=== PATIENT | male | born 1955 | race Caucasian/White ===

== ENCOUNTER → 2018-12-10 | Outpatient (CLI) | payer OTHER, SELFPAY ==
[2018-12-10 14:59] LABS: Vitamin D,25 Hydroxy 13.7 ng/mL (29.95-100.01)
[2018-12-10 15:02] LABS: Anion Gap 6 (5-15); BUN 24 mg/dL (7-18); BUN/Creat Ratio 23.8 RATIO (10-20); Calcium,Total 9.3 mg/dL (8.5-10.1); Chloride 105 mmol/L (98-107); Cholesterol 228 mg/dL (200); Creatinine, Serum 1.01 mg/dL (0.70-1.30); EST Glomerular Filtration Rate 80 mL/min (>60); Est Glom Filt Rate - Afr Amer 97 mL/min (>60); Glucose 92 mg/dL (74-106); High Density Lipoprotein 55 mg/dL; PSA,Total - Annual Screen 2.15 ng/mL (0.00-4.00); Potassium 4.1 mmol/L (3.5-5.1); Sodium Level 138 mmol/L (136-145); Triglycerides 72 mg/dL; Very Low Density Lipoprotein 14 mg/dL (5-40)
== END | disposition home or self-care (01) ==
LOC: MFPLAB 11:40
PROVIDERS: Family Provider Family Medicine; PCP Family Medicine; Referring Provider Family Medicine; Visit Provider Family Medicine
DX: R20.9 Unspecified disturbances of skin sensation (principal); D68.51 Activated protein C resistance; E78.00 Pure hypercholesterolemia, unspecified; Z12.5 Encounter for screening for malignant neoplasm of prostate
CPT/HCPCS: 36415; 80048; 80061; 81241; 82306; 84153; G0103

== ENCOUNTER → 2020-01-17 09:26 | Outpatient (CLI) | payer OTHER, MEDICAID, SELFPAY ==
[2020-01-17 12:44] LABS: ALB/GLOB Ratio 1.2 RATIO (0.9-2.4); AST(SGOT) 22 U/L (15-37); Alanine Aminotransfer ALT/SGPT 26 U/L (16-61); Albumin, Serum 3.8 g/dL (3.2-5.0); Alkaline Phosphatase 73 U/L (45-117); Anion Gap 5 (5-15); BUN 15 mg/dL (7-18); BUN/Creat Ratio 14.3 RATIO (10-20); Calcium,Total 9.2 mg/dL (8.5-10.1); Chloride 105 mmol/L (98-107); Cholesterol 234 mg/dL (200); Creatinine, Serum 1.05 mg/dL (0.70-1.30); EST Glomerular Filtration Rate 76 mL/min (>60); Est Glom Filt Rate - Afr Amer 92 mL/min (>60); Globulin 3.1 g/dL (2.2-4.2); Glucose 101 mg/dL (74-106); High Density Lipoprotein 46 mg/dL; Potassium 4.5 mmol/L (3.5-5.1); Protein, Total 6.9 g/dL (6.4-8.2); Sodium Level 139 mmol/L (136-145); Triglycerides 125 mg/dL; Very Low Density Lipoprotein 25 mg/dL (5-40)
== END ==
PROVIDERS: PCP Family Medicine; Visit Provider Family Medicine
DX: E11.9 Type 2 diabetes mellitus without complications (principal); Z13.220 Encounter for screening for lipoid disorders
CPT/HCPCS: 36415; 80053; 80061

== ENCOUNTER 2020-12-15 05:25 | Day surgery (SDC) | payer OTHER, SELFPAY ==
[2020-12-04 14:35] VITALS: BMI 20.3
[2020-12-11 09:11] VITALS: BMI 20.3
[2020-12-15] VITALS (9 sets, daily range): BP systolic 111–151; BP diastolic 72–81; PULSE 49–58; RESP 14–16; TEMP 36.2–36.6; O2SAT 97–100; BMI 21.0
--- NOTE | 2020-12-15 | COLBX_PTH ---
PATIENT: JAMSHID STEVENS LOC: EN U#:[id number] AGE/SX: 65/M ROOM: RE12/15/[address]: Dr. Luis Miguel Artis MD : 1955 BED: DIS: 12/15/2020 SPEC #: [id number] RECD: 12/15/20 11:50 STATUS: MNAN REHong #: [id number] JOANNA: 12/15/20 00:[address]: Luis Miguel Artis DEPT: SURGICAL PATHOLOGY RECD BY: Ned Villarreal ENTERED: 12/15/20 11:50 SP TYPE: COLON BX OTHR DR: Dr. Alex Joyner MD Tissues: Ascending colon Procedures: Surgery Specimen Level IV HEADER OPERATION: Colonoscopy (MAC) PRE-OP DIAGNOSIS: Screening for malignant neoplasm of intestine; factor 5 Leiden mutation, heterozygous, weight loss TISSUE SUBMITTED: Ascending colon polyp biopsy MICROSCOPIC DIAGNOSIS Ascending colon polyp, biopsy: Tubular adenoma. SJ:hazel 12/18/2020 MICROSCOPIC DESCRIPTION Slides are reviewed. GROSS DESCRIPTION Received in fixative is one container labeled with the patient's name and designated ascending colon polyp biopsy. The specimen consists of two irregular fragments of light fan soft tissue that in aggregate measure 0.4 x 0.3 x 0.1 cm. The specimen is totally submitted in one cassette. / MILAGROS:hazel 12/15/20 TC:1 CPT: 07762
--- NOTE | 2020-12-15 05:47 | PCM.HP.BLA ---
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 cap 02/28/20 [History Confirmed 12/04/20] PFSH Medical History? Hemorrhoids (Acute) Numbness and tingling (Acute) Heart murmur (Acute) Factor 5 Leiden mutation, heterozygous (Acute) Facial paresthesia (Acute) Diabetes (Acute) Surgical History? Hx of tonsillectomy (Acute) H/O hand surgery (Acute) H/O shoulder surgery (Acute) Family History? Mother?? ,? 86 Breast cancerSon Factor 5 Leiden mutation, heterozygousSon Factor 5 Leiden mutation, heterozygous Social History? (Updated 12/04/20 @ 15:[address] Luis Miguel Artis MD) Smoking Status:? Never smoker? second hand exposure:? No? alcohol intake:? never? substance use type:? does not use? caffeine:? Yes? what type of physical activity do you participate in:? 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 HPI HPI HPI: JAMSHID STEVENS, is a 65 M who presents to the office today for surgical consultation regarding a right inguinal hernia.? The patient is being referred by Dr. Alex Joyner and a written copy of my surgical consult and recommendations will return to him.? It is of an additional note that the patient has factor V Leiden mutation.? He has never had a deep venous thrombosis.? He has had previous shoulder and hand surgery before without complication.? He is leaving tomorrow on a flight to [place] to watch a tennis match.? He will also in a week's time be attending a graduation ceremony..? 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 He just lost his fwjcvt-la-iyj.? She had been living with him for several months.? He felt that he encouraged a right groin injury while lifting her.? He has never had any previous hernia surgery. He has never had a colonoscopy.? He denies any bright red blood per rectum or melena. He has had a 15 to 20 pound weight loss over the past year.? He states that rather than going to the office and eating junk food he has been on the [employer] home limitations.? There is been extra stressors.? He has been more physically active at home than when he was going to the office.? He suggest that his weight loss is secondary to that plus eating more of a vegan-like diet. HPI HPI HPI: JAMSHID STEVENS, is a 65 M who presents to the office today for? ROS General General: No weight change, appetite, fatigue, colon cancer, breast cancer or weakness HEENT HEENT: No difficulty swallowing, eye injury, eye surgery, swollen glands or hoarseness Endo Endocrine: No thyroid disease, diabetes mellitus, thyroid cancer, Hair loss, heat intolerance or cold intolerance Skin Skin: No rash or changing moles Breast Breast: No left breast lump, right breast lump, nipple discharge, breast pain, abnormal mammogram, abnormal US or breast enlargement Musc Musculoskeletal: No back problems, arthritis, rheumatoid arthritis, gout or joint pain Cardio Cardiovascular: Yes murmur; no pacemaker, heart disease, atrial fibrillation, high blood pressure, heart attack, heart stent, palpitations, shortness of breat with exertion or chest pain Psych Psychiatric: No depression, anxiety or hearing voices Resp Respiratory: No shortness of breath, No sleep apnea, No cough, No COPD, No asthma, No emphysema, No wheezing Gastro Gastrointestinal: No abdominal pain, No nausea or vomiting, No diarrhea, No constipation, No blood in stool, No acid reflux, Yes hemorrhoids, No ulcers, No gallbladder problem, No black,tarry stools Aris Hematologic: No blood thinners, Yes blood disorders (Factor V), No bleeding, No anemia, No blood clots Neuro Neurologic: Yes numbness, Yes tingling, No weakness Exam Const General: cooperative, healthy appearing, comfortable Nutritional Appearance: underweight Orientation: alert, awake HENHI Head: normal to inspection Chest Breast Palpation: No nipple discharge Resp Effort & Inspection: normal respiratory effort Auscultation: clear to auscultation bilaterally Cardio Rate: regular rate Rhythm: regular rhythm Heart Sounds: murmur GI Palpation: soft, no hepatosplenomegaly Other: Testicles are descended bilaterally.? No testicular mass.? Left groin solid and intact. Skin General: no rashes or lesions noted Neuro Cognition: normal cognition Extrem General: no calf tenderness Psych Affect: normal affect Assessment & Plan Problems 1. Weight loss? R63.4 2. Screening for malignant neoplasm of intestine? Z12.10 3. Factor 5 Leiden mutation, heterozygous? D68.51 4. Reducible right inguinal hernia? K4. Plan Very pleasant 65-year-old gentleman.? He has had a 15 to 20 pound weight loss.? Although there seems to be some discussion that would correlate he is never had a colonoscopy.? There has been recently some extra stress in his family with the loss of his ntcqte-bi-gho.? He is increased his physical activity.? I propose for him a colonoscopy with possible biopsy or polypectomy as indicated.? He has never previously had a screening event.? He has had an opportunity to ask and have questions answered. I then propose for him a laparoscopic right inguinal herniorrhaphy with mesh.? In great detail I have discussed technique benefit risk complications alternatives.? We have compared and contrasted that to other repairs.? 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 He is aware of the risk of recurrence.? He has had an opportunity to ask and have questions answered.? We will try to schedule around his other commitments. I appreciate the opportunity of assisting with his surgical care Copy: Dr. Alex Artis M.D., F.A.C.S. Coding Level of Care Code Off vis,new,level 3 Diagnoses Weight loss? R63.4 Screening for malignant neoplasm of intestine? Z12.10 Factor 5 Leiden mutation, heterozygous? D68.51 Reducible right inguinal hernia? K4 I have re-examined the patient. There are no clinical changes since date of exam.
[2020-12-15] MEDS: Lactated Ringers 1,000 ML 100 ML IV (06:04)
--- NOTE | 2020-12-15 06:49 | OP.COLON_ITS ---
Patient Name: lEiezer Zambrano Procedure Date: 12/15/2020 6:16 AM Date of : 1955 Age: 65 Procedure: Colonoscopy Indications: Screening for colorectal malignant neoplasm Providers: Luis Miguel Artis MD Referring MD: Alex Joyner Md Medicines: See the Anesthesia note for documentation of the administered medications Patient Profile: Last Colonoscopy: none. The patient's first colonoscopy is today. Complications: No immediate complications. Procedure: Pre-Anesthesia Assessment: - Prior to the procedure, a History and Physical was performed, and patient medications and allergies were reviewed. The patient's tolerance of previous anesthesia was also reviewed. The risks and benefits of the procedure and the sedation options and risks were discussed with the patient. All questions were answered, and informed consent was obtained. Prior Anticoagulants: The patient has taken no previous anticoagulant or antiplatelet agents. ASA Grade Assessment: I - A normal, healthy patient. After reviewing the risks and benefits, the patient was deemed in satisfactory condition to undergo the procedure. After I obtained informed consent, the scope was passed under direct vision. Throughout the procedure, the patient's blood pressure, pulse, and oxygen saturations were monitored continuously. The Colonoscope was introduced through the anus and advanced to the cecum, identified by appendiceal orifice and ileocecal valve. The colonoscopy was performed without difficulty. The patient tolerated the procedure well. The quality of the bowel preparation was good. The ileocecal valve and the appendiceal orifice were photographed. Scope In: 6:31:33 AM Scope Withdrawal Time 0 hours 9 minutes 37 seconds Scope Out: 6:43:47 AM Total Procedure Duration Time 0 hours 12 minutes 14 seconds Findings: The digital rectal exam findings include non-thrombosed external hemorrhoids, non-thrombosed internal hemorrhoids and internal hemorrhoids that prolapse with straining, but spontaneously regress to the resting position (Grade II). Pertinent negatives include normal prostate (size, shape, and consistency). A 4 mm polyp was found in the mid ascending colon. The polyp was sessile. The polyp was removed with a cold biopsy forceps. Resection and retrieval were complete. The exam was otherwise without abnormality. Impression: - Non-thrombosed external hemorrhoids, non-thrombosed internal hemorrhoids and internal hemorrhoids that prolapse with straining, but spontaneously regress to the resting position (Grade II) found on digital rectal exam. - One 4 mm polyp in the mid ascending colon, removed with a cold biopsy forceps. Resected and retrieved. - The examination was otherwise normal. Recommendation: - Discharge patient to home. - Resume previous diet. - Continue present medications. - Repeat colonoscopy in 5 years for surveillance based on pathology results. - Telephone my office for pathology results in 1 week. Procedure Code(s): --- Professional --- 16982, Colonoscopy, flexible; with biopsy, single or multiple Diagnosis Code(s): --- Professional --- Z12.11, Encounter for screening for malignant neoplasm of colon K64.1, Second degree hemorrhoids K64.4, Residual hemorrhoidal skin tags D12.2, Benign neoplasm of ascending colon CPT copyright 2017 [employer]. All rights reserved. The codes documented in this report are preliminary and upon health information coder review may be revised to meet current compliance requirements. Luis Miguel Artis MD 12/15/2020 6:48:49 AM This report has been signed electronically. Number of Addenda: 0 Note Initiated On: 12/15/2020 6:16 AM
--- NOTE | 2020-12-15 06:49 | OP.CCLET_ITS ---
12/15/2020 Alex Joyner Md Re : Colonoscopy procedure for Eliezer Zambrano Dear Ar This procedure was performed on Tuesday, December 15, 2020. My impressions and recommendations are as follows: Impressions : - Non-thrombosed external hemorrhoids, non-thrombosed internal hemorrhoids and internal hemorrhoids that prolapse with straining, but spontaneously regress to the resting position (Grade II) found on digital rectal exam. - One 4 mm polyp in the mid ascending colon, removed with a cold biopsy forceps. Resected and retrieved. - The examination was otherwise normal. Recommendations : - Discharge patient to home. - Resume previous diet. - Continue present medications. - Repeat colonoscopy in 5 years for surveillance based on pathology results. - Telephone my office for pathology results in 1 week. My findings are described in the full procedure note, which is enclosed. If I can be of further assistance, please feel free to contact me at Doctor phone number(s): Work: . Sincerely, Luis Miguel Artis MD 12/15/2020 6:48:49 AM This report has been signed electronically.
== END 2020-12-15 08:03 | disposition home or self-care (01) ==
LOC: EN 05:25 → AC 05:28
PROVIDERS: PCP Family Medicine; Referring Provider Family Medicine; Visit Provider Surgery
PROC: 0DJD8ZZ Inspection of Lower Intestinal Tract, Via Natural or Artificial Opening Endoscopic (ICD-10-PCS; CPT 45378; principal; 2020-12-15 06:25)
DX: Z12.11 Encounter for screening for malignant neoplasm of colon (principal); D12.2 Benign neoplasm of ascending colon; K64.1 Second degree hemorrhoids; K40.90 Unilateral inguinal hernia, without obstruction or gangrene, not specified as recurrent; E11.9 Type 2 diabetes mellitus without complications
CPT/HCPCS: 45380; 88305; J7120; J2405

== ENCOUNTER 2020-12-20 09:26 | Day surgery (SDC) | payer OTHER, SELFPAY ==
[2020-12-04 14:35] VITALS: BMI 20.3
--- NOTE | 2020-12-15 05:35 | EKG12_ITS ---
Test Reason : PREOP Blood Pressure : / mmHG Vent. Rate : 047 BPM Atrial Rate : 047 BPM P-R Int : 140 ms QRS Dur : 086 ms QT Int : 448 ms P-R-T Axes : 076 037 044 degrees QTc Int : 396 ms Sinus bradycardia Confirmed by MOISES FOWLER, NATE ([id number]), tape editor EMIL MARINELLI ([id number]) on 12/20/2020 9:17:45 AM Referred By: Alex Joyner Confirmed By:NATE DE LEON MD
[2020-12-15 05:49] VITALS: BMI 21.0
[2020-12-15 07:15] LABS: Hematocrit 40.4 % (40-54); Hemoglobin 13.7 g/dL (13.0-16.5); Mean Corp Hgb Conc 33.9 g/dL (32-36); Mean Corpuscular Hgb 30.6 pg (27.0-32.0); Mean Corpuscular Volume 90.4 fL (80-94); Mean Platelet Vol. 9.7 fl (6.2-12.0); Platelet Count 165 K/mm3 (150-450); RBC Distribution Width CV 11.7 % (11.6-14.6); RBC Distribution Width SD 38.8 fl (35.1-43.9); Red Blood Count 4.47 M/mm3 (4.6-6.2); White Blood Count 3.4 K/mm3 (4.4-11.0)
[2020-12-15 07:27] LABS: Anion Gap 2 (5-15); BUN 14 mg/dL (7-18); BUN/Creat Ratio 14.2 RATIO (10-20); Calcium,Total 8.8 mg/dL (8.5-10.1); Chloride 107 mmol/L (98-107); Creatinine, Serum 0.99 mg/dL (0.70-1.30); EST Glomerular Filtration Rate 81 mL/min (>60); Est Glom Filt Rate - Afr Amer 98 mL/min (>60); Glucose 101 mg/dL (74-106); Sodium Level 141 mmol/L (136-145)
[2020-12-20] VITALS (8 sets, daily range): BP systolic 123–144; BP diastolic 60–86; PULSE 51–67; RESP 16–18; TEMP 35.7–36.8; O2SAT 96–100; BMI 20.7
[2020-12-20] MEDS: Lactated Ringers 1,000 ML 100 ML IV (10:14)
--- NOTE | 2020-12-20 11:04 | PCM.HP.BLA ---
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 Is patient in pain?: Yes (Right groin tenderness) Allergies Corticosteroids (Glucocorticoids) Adverse Reaction (Intermediate, Verified 12/04/20 14:36) Swelling Medications cholecalciferol (vitamin D3) 50 mcg (2,000 unit) capsule 100 mcg PO DAILY cap 02/28/20 [History Confirmed 12/04/20] [facility] Medical History Hemorrhoids (Acute) Numbness and tingling (Acute) Heart murmur (Acute) Factor 5 Leiden mutation, heterozygous (Acute) Facial paresthesia (Acute) Diabetes (Acute) Surgical History Hx of tonsillectomy (Acute) H/O hand surgery (Acute) H/O shoulder surgery (Acute) Family History Mother , 86 Breast cancerSon Factor 5 Leiden mutation, heterozygousSon Factor 5 Leiden mutation, heterozygous Social History (Updated 12/04/20 @ 15:[address] 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 The patient is being referred by Dr. Alex Joyner and a written copy of my surgical consult and recommendations will return to him. It is of an additional note that the patient has factor V Leiden mutation. He has never had a deep venous thrombosis. He has had previous shoulder and hand surgery before without complication. He is leaving tomorrow on a flight to [place] to watch a tennis match. He will also in a week's time be attending a graduation ceremony.. 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 He just lost his ivcvnh-au-dng. She had been living with him for several months. He felt that he encouraged a right groin injury while lifting her. He has never had any previous hernia surgery. He has never had a colonoscopy. He denies any bright red blood per rectum or melena. He has had a 15 to 20 pound weight loss over the past year. He states that rather than going to the office and eating junk food he has been on the [employer] virtual home limitations. There is been extra stressors. He has been more physically active at home than when he was going to the office. He suggest that his weight loss is secondary to that plus eating more of a vegan-like diet. HPI HPI HPI: JAMSHID STEVENS, is a 65 M who presents to the office today for ROS General General: No weight change, appetite, fatigue, colon cancer, breast cancer or weakness HEENT HEENT: No difficulty swallowing, eye injury, eye surgery, swollen glands or hoarseness Endo Endocrine: No thyroid disease, diabetes mellitus, thyroid cancer, Hair loss, heat intolerance or cold intolerance Skin Skin: No rash or changing moles Breast Breast: No left breast lump, right breast lump, nipple discharge, breast pain, abnormal mammogram, abnormal US or breast enlargement Musc Musculoskeletal: No back problems, arthritis, rheumatoid arthritis, gout or joint pain Cardio Cardiovascular: Yes murmur; no pacemaker, heart disease, atrial fibrillation, high blood pressure, heart attack, heart stent, palpitations, shortness of breat with exertion or chest pain Psych Psychiatric: No depression, anxiety or hearing voices Resp Respiratory: No shortness of breath, No sleep apnea, No cough, No COPD, No asthma, No emphysema, No wheezing Gastro Gastrointestinal: No abdominal pain, No nausea or vomiting, No diarrhea, No constipation, No blood in stool, No acid reflux, Yes hemorrhoids, No ulcers, No gallbladder problem, No black,tarry stools Aris Hematologic: No blood thinners, Yes blood disorders (Factor V), No bleeding, No anemia, No blood clots Neuro Neurologic: Yes numbness, Yes tingling, No weakness Exam Const General: cooperative, healthy appearing, comfortable Nutritional Appearance: underweight Orientation: alert, awake [facility] Head: normal to inspection Chest Breast Palpation: No nipple discharge Resp Effort & Inspection: normal respiratory effort Auscultation: clear to auscultation bilaterally Cardio Rate: regular rate Rhythm: regular rhythm Heart Sounds: murmur GI Palpation: soft, no hepatosplenomegaly Other: Testicles are descended bilaterally. No testicular mass. Left groin solid and intact. Skin General: no rashes or lesions noted Neuro Cognition: normal cognition Extrem General: no calf tenderness Psych Affect: normal affect Assessment & Plan Problems 1. Weight loss R63.4 2. Screening for malignant neoplasm of intestine Z12.10 3. Factor 5 Leiden mutation, heterozygous D68.51 4. Reducible right inguinal hernia K40.90 Plan Very pleasant 65-year-old gentleman. He has had a 15 to 20 pound weight loss. Although there seems to be some discussion that would correlate he is never had a colonoscopy. There has been recently some extra stress in his family with the loss of his gbakke-ya-oit. He is increased his physical activity. I propose for him a colonoscopy with possible biopsy or polypectomy as indicated. He has never previously had a screening event. He has had an opportunity to ask and have questions answered. I then propose for him a laparoscopic right inguinal herniorrhaphy with mesh. In great detail I have discussed technique benefit risk complications alternatives. We have compared and contrasted that to other repairs. 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 He is aware of the risk of recurrence. He has had an opportunity to ask and have questions answered. We will try to schedule around his other commitments. I appreciate the opportunity of assisting with his surgical care Copy: Dr. Alex Artis M.D., F.A.C.S. Coding Level of Care Code Off [facility],level 3 Diagnoses Weight loss R63.4 Screening for malignant neoplasm of intestine Z12.10 Factor 5 Leiden mutation, heterozygous D68.51 Reducible right inguinal hernia K40.90 On December 15, 2020 the patient had a colonoscopy done per myself. A single tubular adenoma was removed from the colon. The remainder of the exam was unremarkable. Follow-up colonoscopy in 5 years is planned. The patient now presents for planned laparoscopic right inguinal hernia repair with mesh. He is aware of technique, benefit, risk, alternatives. We will proceed as noted. Luis Miguel Artis M.D., F.A.C.S.
--- NOTE | 2020-12-20 11:06 | EX.PCM.DISCH ---
Discharge Instructions Procedure General Surgery Diet Discharge Diet: Light diet - advance as tolerated (if you have questions about your diet instructions, please talk to you doctor.) Activity Discharge Activity: May Not Drive (for 3-5 days or while taking narcotic pain medicine.) May shower in (days): 1 Lifting Restrictions: 10 pounds Dressing / Incision Call your doctor if your incision/area has: Continuous Slow Oozing, Sudden Increased Bleeding, Increased Pain/ Swelling, Increased Redness and Foul Smelling Discharge Call your doctor if you observe: Fever of 101 or Higher Suture Line Care: Avoid Pulling/Pushing and Avoid Pinching/Bending Additional Dressing/Incision Instructions:: Change or remove dressing in 4 days. Leave steri-strips in place for 1 week. Follow Up Care Please Follow Up With: Luis Miguel Artis MD When: Call [phone] to make an appointment to be seen in about 10 days. Test Results: Test results from this visit will be discussed in further detail at your follow-up appointment, if applicable. Discharge Plan Admission Attending Provider: Luis Miguel Artis Primary Care Provider: Alex Joyner Discharge Orders/Prescriptions Prescriptions: No Action cholecalciferol (vitamin D3) 50 mcg (2,000 unit) capsule 100 mcg PO DAILY RF: 0 Other Ambulatory Orders: Basic Metabolic Profile (BMP) (Routine) Timeframe: 20201215 Facility: [facility] - Location: Laboratory Ordered By: Dr. Luis Miguel Artis CBC-Complete Blood Cnt No Diff (Routine) Timeframe: 20201215 Facility: [facility] - Location: Laboratory Ordered By: Dr. Luis Miguel Artis
[2020-12-20] MEDS: Cefazolin 2 GM in 0.9% Normal Saline 100 ML IV (11:50)
[2020-12-20] MEDS: Bupivacaine Mpf 0.5% 30 ML VIAL (12:56)
--- NOTE | 2020-12-20 12:57 | PCM.OPRPT ---
Problems Associated Problem List Diagnoses (1) Reducible right inguinal hernia: Report of Operation Date of Procedure: 12/20/20 Pre-Operative Diagnosis: Right inguinal hernia Post-Operative Diagnosis: Indirect right inguinal hernia with cord lipoma Surgery/Procedure Performed:: Laparoscopic right inguinal herniorrhaphy with Bard 3D max extra-large right mesh, lot number [id number], reference #[id number], expiry date 06/07/2025 Secure strap lot number [id number], expiry date April 2022 Description of Surgical Findings:: Timeout and informed consent was obtained. 65-year-old gentleman was taken to the operating placed upon the table underwent general endotracheal intubation anesthesia. Ancef 2 g were given intravenously preoperatively. The abdomen was sterilely prepped and draped. 0.5% Marcaine was used as local anesthetic. A total of 30 cc was used. Local was instilled a vertical infraumbilical incision was created holding sutures of 0 Vicryl placed varies needle inserted saline drop test performed the abdomen was insufflated with CO2 to a pressure of 10 mmHg pressure. 10 mm trocar inserted. 10 mm laparoscope inserted. Under direct visualization there was no trocar injuries 5 mm ports were placed in the right left lower quadrant. There was a very minimal defect of the left internal ring. There was an obvious indirect right inguinal hernia. A ileal inguinal nerve block was performed on the right under laparoscopic visualization. Then the peritoneum superior and lateral to the internal ring was incised and carried medially. The peritoneum was completely dissected free. The rather sizable hernia sac was dissected free and completely inverted. And so doing a cord lipoma was identified and this was dissected free and reduced as well. The peritoneum was generously dissected free. Having now the direct indirect femoral areas identified I selected the use a extra-large right 3D Bard max mesh. It was placed in and actually for the very nicely so as to cover the direct space indirect and femoral area. Very nice coverage was achieved. Lateral superiorly and medially I secured that with secure strap. Excellent positioning was achieved. The peritoneum was then approximated to itself using a combination of secure strap and hemolock clips. Complete obliteration to the mesh was achieved. Trochars were removed after the gas was allowed to escape via an antiviral valve. The fascia at the umbilicus was approximated with an interrupted 0 Vicryl qrjrrk-sv-voyaz suture. Skin edges approximated 4-0 Monocryl subdermal stitches. Peyton-Strips Telfa OpSite dressings applied. Specimens none. Drains none. Blood loss minimal. The patient was taken to the recovery room in satisfactory condition without apparent complication Luis Miguel Artis M.D., F.A.C.S. Type of Anesthesia: General and Local Anesthesiologist: Davian Lopez
[2020-12-20] MEDS: Ketorolac 30 MG/ML Syringe IV (14:35)
== END 2020-12-20 16:25 | disposition home or self-care (01) ==
LOC: SDC 09:27 → AC 09:28
PROVIDERS: PCP Family Medicine; Referring Provider Family Medicine; Visit Provider Surgery
PROC: (CPT 49650; principal; 2020-12-20 11:15)
DX: K40.90 Unilateral inguinal hernia, without obstruction or gangrene, not specified as recurrent (principal); D17.6 Benign lipomatous neoplasm of spermatic cord; D68.51 Activated protein C resistance; R63.6 Underweight
CPT/HCPCS: 00840; 49650; 55559; 80048; 85027; 93005; J7120; C1781; J2405

== ENCOUNTER → 2021-01-03 07:22 | Outpatient (CLI) | payer OTHER, SELFPAY ==
[2020-12-11 09:11] VITALS: BMI 20.3
[2020-12-20 10:07] VITALS: BMI 20.7
--- NOTE | 2021-01-03 07:22 | MRI_ITS ---
STUDY: MRI BRAIN WITH AND WITHOUT CONTRAST REASON FOR EXAM: Male, 65 years old. Trigeminal Neuropathy TECHNIQUE: Standardized multiplanar fat and water weighted pulse sequences were obtained. IV 12ml Dotarem was administered for the contrast portion of the examination. COMPARISON: None. FINDINGS: Normal size of the ventricles and extra-axial spaces for the patient''s age. Normal white matter tracts of the supratentorial brain. There is no evidence for recent intracranial ischemia or other cause of cytotoxic edema on diffusion weighted imaging (DWI). Normal T2* images of the brain without demonstrated susceptibility artifact. There is no demonstrated hemosiderin stain. Normal bilateral basal ganglia. Normal thalami. There is no extra-axial fluid accumulation. Normal flow voids within the major intracranial circulation suggesting patency by spin echo criteria. Normal venous enhancement. There is no enhancing intra-axial or extra-axial abnormality. Normal sella turcica, pituitary gland, infundibular stalk, optic chiasm and hypothalamus. Normal tectal plate and pineal gland. Normal midbrain, vinnie and medulla. Normal cerebellum. Normal basal cisterns. Normal bilateral temporal bones. Normal bilateral internal auditory canals. No demonstrated orbital abnormality, within the constraints of a routine brain study. Normal visualized paranasal sinuses. Normal calvarium and skull base. Normal visualized soft tissue structures. Normal visualized upper cervical spine. MRI/Brain W/WO Contrast IMPRESSION: Normal unenhanced and enhanced MRI of the brain. Electronically Signed: Fitz Khan MD at 9:39 EDT Tel , Service support ,
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
== END ==
PROVIDERS: PCP Family Medicine; Referring Provider Psychiatry & Neurology Neurology; Visit Provider Psychiatry & Neurology Neurology
DX: G50.9 Disorder of trigeminal nerve, unspecified (principal); G62.9 Polyneuropathy, unspecified; M54.12 Radiculopathy, cervical region; M54.2 Cervicalgia; G89.29 Other chronic pain
CPT/HCPCS: 70553; 72156; A9575

== ENCOUNTER → 2021-01-18 09:13 | Outpatient (CLI) | payer OTHER, SELFPAY ==
[2020-12-20 10:07] VITALS: BMI 20.7
[2021-01-18 10:29] LABS: Cholesterol 202 mg/dL (200); High Density Lipoprotein 50 mg/dL; PSA,Total- Diagnostic 1.89 ng/mL (0.0-4.0); Triglycerides 78 mg/dL; Very Low Density Lipoprotein 16 mg/dL (5-40)
== END ==
PROVIDERS: PCP Family Medicine; Referring Provider Family Medicine; Visit Provider Family Medicine
DX: E78.00 Pure hypercholesterolemia, unspecified (principal); R97.20 Elevated prostate specific antigen [PSA]
CPT/HCPCS: 36415; 80061; 84153

== ENCOUNTER → 2021-01-25 15:27 | Outpatient (CLI) | payer OTHER, SELFPAY ==
[2020-12-20 10:07] VITALS: BMI 20.7
[2021-01-25 17:41] LABS: Vitamin B12 253 pg/mL (211-911)
[2021-01-25 18:16] LABS: Thyroid Stim Hormone (TSH) 1.88 uIU/mL (0.358-3.74)
[2021-01-30 11:22] LABS: Vitamin D 1,25-Dihydroxy 39.6 pg/mL (19.9-79.3)
[2021-01-31 21:07] LABS: Vitamin B1, Thiamine 123.6 nmol/L (66.5-200.0)
== END ==
PROVIDERS: PCP Family Medicine; Referring Provider Family Medicine; Visit Provider Psychiatry & Neurology Neurology
DX: G95.9 Disease of spinal cord, unspecified (principal); E55.9 Vitamin D deficiency, unspecified
CPT/HCPCS: 36415; 82607; 82652; 82746; 84425; 84443

== ENCOUNTER → 2021-03-05 08:58 | Outpatient (CLI) | payer OTHER, SELFPAY ==
[2020-12-11 09:11] VITALS: BMI 20.3
[2020-12-20 10:07] VITALS: BMI 20.7
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
== END ==
PROVIDERS: PCP Family Medicine; Referring Provider Psychiatry & Neurology Neurology; Visit Provider Psychiatry & Neurology Neurology
DX: G56.20 Lesion of ulnar nerve, unspecified upper limb (principal); G62.9 Polyneuropathy, unspecified; M54.12 Radiculopathy, cervical region
CPT/HCPCS: 95886; 95913

== ENCOUNTER → 2023-06-03 | Outpatient (CLI) | payer MEDICARE, BC, SELFPAY ==
[2023-06-03 12:30] LABS: Absolute Lymphocyte Count 1.29 X10^3/uL (0.83-4.51); Basophil# 0.02 X10^3/uL; Basophil% 0.5 % (0-1); Eosinophil# 0.09 X10^3/uL; Eosinophils% 2.4 % (0-5); Hematocrit 47.7 % (40-54); Lymphocyte # 1.29 X10^3/ul (0.83-4.51); Lymphocyte % 34.1 % (19-41); Mean Corp Hgb Conc 33.5 g/dL (32-36); Mean Corpuscular Hgb 30.4 pg (27.0-32.0); Mean Corpuscular Volume 90.7 fL (80-94); Mean Platelet Vol. 10.5 fl (6.2-12.0); Monocyte# 0.37 X10^3/uL; Monocyte% 9.8 % (0-10); NRBC Flagged by Analyzer 0 % (0-5); Neutrophil % 52.9 % (47-70); Platelet Count 192 K/mm3 (150-450); RBC Distribution Width CV 11.9 % (11.6-14.6); RBC Distribution Width SD 39.3 fl (35.1-43.9); Red Blood Count 5.26 M/mm3 (4.6-6.2); White Blood Count 3.8 K/mm3 (4.4-11.0)
[2023-06-03 12:58] LABS: Vitamin B12 438 pg/mL (211-911); Vitamin D,25 Hydroxy 60.1 ng/mL
[2023-06-03 13:14] LABS: ALB/GLOB Ratio 1.3 RATIO (0.9-2.4); AST(SGOT) 17 U/L (15-37); Alanine Aminotransfer ALT/SGPT 24 U/L (16-61); Albumin, Serum 3.9 g/dL (3.2-5.0); Alkaline Phosphatase 61 U/L (45-117); Anion Gap 3 (5-15); BUN 27 mg/dL (7-18); BUN/Creat Ratio 23.1 RATIO (10-20); Calcium,Total 9.3 mg/dL (8.5-10.1); Chloride 107 mmol/L (98-107); Cholesterol 240 mg/dL (200); Creatinine, Serum 1.17 mg/dL (0.70-1.30); EST Glomerular Filtration Rate 66 mL/min (>60); Est Glom Filt Rate - Afr Amer 80 mL/min (>60); Globulin 3.1 g/dL (2.2-4.2); Glucose 101 mg/dL (74-106); High Density Lipoprotein 56 mg/dL; PSA,Total - Annual Screen 2.62 ng/mL (0.00-4.00); Potassium 4.5 mmol/L (3.5-5.1); Sodium Level 136 mmol/L (136-145); Triglycerides 65 mg/dL; Very Low Density Lipoprotein 13 mg/dL (5-40)
== END | disposition home or self-care (01) ==
LOC: MFPLAB 10:29
PROVIDERS: PCP Family Medicine; Visit Provider Family Medicine
DX: E78.00 Pure hypercholesterolemia, unspecified (principal); D68.51 Activated protein C resistance; E55.9 Vitamin D deficiency, unspecified; E53.8 Deficiency of other specified B group vitamins; Z12.5 Encounter for screening for malignant neoplasm of prostate
CPT/HCPCS: 36415; 80053; 80061; 82306; 82607; 84153; 85025; G0103